=== PATIENT | female | born 1985 | race Caucasian/White ===

== ENCOUNTER 2020-12-01 17:00 | Emergency (ER) | payer OTHER ==
[~2020-12-01] VITALS: Ht 154.9 cm; Wt 97.5 kg
[2020-12-01] MEDS ORDERED: ATENOLOL 25 MG25 M1 PO (17:10)
[2020-12-01] MEDS ORDERED: PROZAC40 MG PO (17:10)
[2020-12-01] MEDS ORDERED: MAGNESIUM400 MG PO (17:10)
[2020-12-01] MEDS ORDERED: TOPAMAX100 MG PO (17:11)
[2020-12-01] MEDS ORDERED: ZYRTEC10 MG PO (17:11)
[2020-12-01 21:23] VITALS: BP 136/89
== END 2020-12-01 21:24 | disposition home or self-care (01) ==
LOC: M.ERS 17:00
DX: G43.909 Migraine, unspecified, not intractable, without status migrainosus (principal); I10 Essential (primary) hypertension; Z88.5 Allergy status to narcotic agent; Z88.6 Allergy status to analgesic agent; Z87.442 Personal history of urinary calculi